=== PATIENT | male | born 1955 | race Caucasian/White ===

== ENCOUNTER 2019-09-23 17:24 | Inpatient (IN) | payer OTHER ==
[~2019-09-23] VITALS: Ht 165.1 cm; Wt 72.6 kg
[2019-09-23] MEDS ORDERED: ZANTAC 150150 MG PO (17:39)
[2019-09-23] MEDS ORDERED: SEROQUEL400 M1 PO (17:39)
[2019-09-23] MEDS ORDERED: ZOCOR20 MG PO (17:39)
[2019-09-23] MEDS ORDERED: NATURE'S BLEND100 M2 PO (17:41)
[2019-09-23] MEDS ORDERED: COGENTIN0.5 MG PO (17:42)
[2019-09-23] MEDS ORDERED: ZYPREXA10 M1 PO (17:42)
[2019-09-23] MEDS ORDERED: PROTONIX20 MG PO (17:43)
[2019-09-23] MEDS ORDERED: ASPIRIN81 M1 PO (17:44)
[2019-09-23] MEDS ORDERED: LISINOPRIL2.5 MG PO (17:44)
[2019-09-23] MEDS ORDERED: DILANTIN100 MG PO (17:44)
[2019-09-24 00:18] VITALS: BP 159/83
--- NOTE | 2019-09-24 00:18 | NUR ---
KIRK HORVATH Lizzie a 64 year old M admitted via stretcher from [facility] as a emergency 72 hr. hold admission. Arrived on unit at 0018. ALLERGIES: HALDOL. Vital signs are: [phone]/83. The client signed the following forms with stated understanding: Authorization For The Release of Medical Information, Clothing List, Consent to Voluntary Admission and Hospitalization, Consent and Release Forms/Receipt of Rights, Acknowledgement of Advance Directive Information, Behavioral Health Consent Form, and Informed Consent of Medications. Admitted under the services of Dr. JIA SON,[facility]. A search was conducted and hazardous articles were removed. Client was oriented to the unit. DYLAN PIEDRA
--- NOTE | 2019-09-24 00:39 | NUR ---
HOSPITALIST CALLED, DR. MAJOR UPDATED ON NEW ADMISSION AND MED REC BEING COMPLETE, READY FOR REVIEW. STATED TO PLACE CONSULT UNDER . NO OTHER ORDERS RECEIVED.
--- NOTE | 2019-09-24 00:45 | NUR ---
ON UNIT TO SEE PATIENT AT THIS TIME.
[2019-09-24 00:59] LABS: BILIRUBIN NEGATIVE (NEGATIVE); BLOOD NEGATIVE (NEGATIVE); CLARITY CLEAR (CLEAR); COLOR YELLOW (YELLOW); GLUCOSE NEGATIVE (NEGATIVE); KETONE NEGATIVE (NEGATIVE); LEUKO ESTERASE NEGATIVE (NEGATIVE); NITRITE NEGATIVE (NEGATIVE); PH 6.5 (5.0-9.0); SPECIFIC GRAVITY 1.015 (1.005-1.030); UROBILINOGEN 0.2 E.U./dl (0.2-1.0)
[2019-09-24 01:23] LABS: WBC 0-2 wbc/hpf (0-5)
[2019-09-24 01:34] VITALS: BP 159/83
--- NOTE | 2019-09-24 04:13 | NUR ---
The patient has no complaints and is resting comfortably. DYLAN PIEDRA
[2019-09-24 06:25] LABS: BASO % 0.4 % (0.0-1.0); EOS # 0.4 10*3/uL (0.0-0.4); EOS % 5.4 % (1.0-4.0); HEMATOCRIT 34.9 % (42.0-52.0); HEMOGLOBIN 11.5 g/dl (14.0-18.0); LYMPH # 2.3 10*3/uL (1.3-4.4); MEAN CELL VOLUME 91.6 fl (80.0-94.0); MEAN CORPUSCULAR HGB 30.2 pg (27.0-31.0); MEAN PLATELET VOLUME 9.9 fl (9.6-12.3); MONO # 0.6 10*3/uL (0.1-1.0); NEUT # 3.8 10*3/uL (2.3-7.9); NEUT % 54.1 % (47.0-73.0); PLATELET COUNT AUTOMATED 239 10*3/uL (130-400); RED BLOOD COUNT 3.81 10*6/uL (4.50-5.90); RED CELL DISTRI WIDTH 13.4 % (0-14.5); WHITE BLOOD COUNT 7.1 10*3/uL (4.8-10.8)
[2019-09-24 06:56] LABS: ALBUMIN 3.1 gm/dl (3.1-4.5); BUN 12 mg/dl (7-24); CHLORIDE 113 mmol/L (98-107); CHOLESTEROL 207 mg/dL (<200); CREATININE 0.83 mg/dL (0.70-1.30); POTASSIUM 3.7 mmol/L (3.5-5.1); SGOT/AST 13 IU/L (3-35); SGPT/ALT 12 U/L (12-78); SODIUM 144 mmol/L (136-145); TRIGLYCERIDES 167 mg/dl (<150); VLDL CHOLESTEROL 33 mg/dL (6-40)
[2019-09-24 07:06] LABS: ALKALINE PHOSPHATASE 66 U/L (45-117); B-hCG (QUALITATIVE) NEGATIVE; HDL CHOLESTEROL 43 mg/dl (40-60); LDL CHOLESTEROL 131 mg/dL (9-159); TOTAL PROTEIN 6.2 gm/dL (6.4-8.2)
[2019-09-24 07:52] LABS: VITAMIN D, 25-HYDROXY 20.9 ng/mL (30-100)
[2019-09-24 08:42] VITALS: BP 135/85
--- NOTE | 2019-09-24 11:46 | NUR ---
AM GROUP PT CHOSE NOT TO ATTEND MORNING GROUP THERAPY. PT STAYED IN BED.
--- NOTE | 2019-09-24 14:27 | NUR ---
SPOKE WITH VIA TELEPHONE, MADE AWARE PT HAS REFUSED BOTH DOSES OF DILANTIN THIS SHIFT, PER PT HE DOES NOT TAKE THIS MEDICATION AT HOME AND DOES NOT HAVE A SEIZURE DISORDER. PT STATES HE WAS TAKING IT AT ONE TIME TO PREVENT SEIZURES RELATED TO DRINKING BUT NO LONGER TAKES AT HOME.
--- NOTE | 2019-09-24 15:40 | NUR ---
PM GROUP PT DID NOT ATTEND AFTERNOON GROUP THERAPY. PT STAYED IN HIS ROOM
--- NOTE | 2019-09-24 18:56 | NUR ---
NO ADVERSE MOODS/BEHAVIORS THIS SHIFT. PT IS ALERT AND ORIENTED X4. MEMORY APPEARS TO BE INTACT. RESPS EASY AND EVEN ON ROOM AIR. MOOD APPEARS STABLE WITH APPROPRIATE AFFECT. PT DENIES FEELING SAD OR DEPRESSED, STATES HE FEELS "OK". PT STATES HE IS HERE BECAUSE SOMEONE STOLE HIS MEDICATIONS. PT DENIES HAVING ANY HALLUCINATIONS SINCE HE'S BEEN HERE BUT STATES YESTERDAY HE WAS SEEING SHADOWS AND HEARING A VOICE IN HIS HEAD TELLING HIM TO RUN HIS HEAD INTO THE WALL AND JUMP IN FRONT OF A CAR. PT DENIES SI/HI, INTENT OR PLAN. CONTRACTS FOR SAFETY. NO PARANOIA OR DELUSIONS NOTED. PT IS MEDICATION COMPLIANT WITH EXCEPTION OF DILANTIN, SEE PREVIOUS NOTE REGARDING THIS MEDICATION. PT HAS OFFERED NO COMPLAINTS THIS SHIFT. NO DISTRESS NOTED. PLAN TO CONTINUE CURRENT TREATMENT, CONTINUE TO MONITOR MOOD AND BEHAVIORS, PROVIDE APPROPRIATE REORIENTATION, REDIRECTION AND 1:1 NEEDED. CONTINUE TO ENCOURAGE MEDICATION COMPLIANCE WELL GROUP ATTENDANCE AND PARTICIPATION.
[2019-09-24 19:59] VITALS: BP 112/68
--- NOTE | 2019-09-24 21:45 | NUR ---
Patient alert and oriented x4. Memory seems to be intact. Mood calm and pleasant. Patient denies any SI/HI at this time. No signs of any responding to internal stimuli. Patient compliant with HS medications without any diffficulty. Patient isolative to self this evening. Provided 1:1 for therapeutic communication and emotional support. Patient ambulating in hallway with steady gait. Plan to continue to encourage medication compliance and continue to provide for emotional support. Also encourage to be more interactive with staff and other patients. Q 15 minute safety checks continued and maintained. See [facility] flowsheet for further documentation.
--- NOTE | 2019-09-25 00:22 | NUR ---
24 HR chart check completed.
--- NOTE | 2019-09-25 05:32 | NUR ---
Patient slept approx. 6 hours throughout shift. Q 15 minute safety checks continued and maintained.
[2019-09-25 06:33] LABS: LIPASE 144 U/L (73-393)
[2019-09-25 07:52] VITALS: BP 110/60
--- NOTE | 2019-09-25 12:09 | NUR ---
AM GROUP/EXERCISE/MUSIC/BINGO PT IN AND OUT OF ACTIVITY ROOM AND OFFERED DIFFERENT ACTIVITY'S. PT LOOKED THROUGH A MAGAZINE FOR A FEW MINUTES AND REQUESTED THE HISTORY CHANNEL, OR TRAVEL CHANNEL, BUT NEITHER CHANNEL AVAILABLE. PT REQUESTED ANOTHER CHANNEL WHICH WE HAD, BUT PT CHOSE NOT TO STAY AND WATCH. PT EXPRESSED NO HALLUCINATIONS OR S.I. AT THIS TIME. PT WILL CONTINUE TO BE ENOCURAGED TO ATTEND AND PARTICIPATE IN FUTURE GROUP SESSIONS.
--- NOTE | 2019-09-25 15:00 | NUR ---
P: VOICED DELUSIONALS THOUGTHS TO NURSE: INFORMED NURSE OF THE FOLLOWING "I GOT MYSELF IN SKILLED NURSING, WANTING TO TALK TO SOMEONE I THOUGHT WOULD KNOW WHERE MY SISTER IS OR HERE WHERE [place], SHE HAS BEEN MISSING FOR 30 YRS. I HELP TO CONVICT 6 MURDERS AND 15 CHILD MOLESTERS" STATES HIS SISTER IS "GAUTAM HORVATH" ALSO WANTS TO KNOW ABOUT HIS MENTAL HYGENE MEETING, WHERE HE IS GOING NEXT. PATIENT STATES "I [facility] TO GO [facility], I NEED HELP WITH RELOCATING" PATIENT REPORTS HAVING THE FOLLOWING DIAGNOSIS "BIPOLAR AND SCHIZOAFFECTIVE DISORDER, WANTS RECORDS PULLED FROM [place]" PATIENT STATED HE IS HOMELESS AND POLICE WAS CALLED ON HIM FOR BEING AT [employer] IN [place], SLEEPING WITH ONE OF THE BEDS AND HAVING ALCOHOL WITH HIM. I: ONE ON ONE FOR EMOTIONAL SUPPORT, TALKED WITH PATIENT REGARDING COPING SKILLS AND GOALS. ENCOUARGED PATIENT TO TALK WITH AREA FIELD MANAGER ON FRIDAY AND DOCTOR REGARDING DISCHARGES PLANS. R: EFFECTIVE. PATIENT IS ALERT AND ORIENT TO PERSON, PLACE, TIME AND SITUATION; ABLE TO VOICE NEEDS. MOOD IS STABLE. DENIES ANY HALLUCINATIONS, DELUSIONS, HI/SI OR PAIN. ADMITS TO HEARING COMMAND HALLUCINATIONS IN THE PAST AND PROCCUPIED THAT VOICE WILL COME BACK WHEN DISCHARGE. MEDICATION COMPLAINT WITH EDUCATION PROVIDED. Q 15 MINUTE SAFETY CHECKS MAINATAINED. INDEPENDENT WITH ACTIVITIES OF DAILY LIVING, CONTINENT OF BOWEL AND BLADDER. SET UP FOR MEALS, INTAKES ARE GOOD WITH ADEQUATE FLUID. CONTINUE TO MONITOR FOR HALLUCINATIONS AND DELUSIONS; PROVIDE ONE ON ONE EMOTIONAL SUPPORT AND ASSIST WITH COPING SKILLS AND GOAL SETTING. P:
--- NOTE | 2019-09-25 15:54 | NUR ---
PM GROUP/BEADING/MUSIC PT CHOSE NOT TO ATTEND OR PARTICIPATE AT THIS TIME. PT TALKING OUTSSIDE OF NURSES STATION TO NURSES AND COMES INTO ACTIVTY ROOM LOOKING FOR COFFEE. PT EXPRESSED NO S.I. OR HALLUCINATIONS WHENI N ACTIVITY ROOM. PT WILL CONTINUE TO BE ENOCURAGED TO ATTEND AND PARTICIPATE IN FUTURE GROUP SESSIONS.
[2019-09-25 19:49] VITALS: BP 111/63
--- NOTE | 2019-09-25 21:49 | NUR ---
Patient alert and oriented x4. Memory seems to be intact. Mood calm and pleasant. Patient denies any SI/HI at this time. No signs of any responding to internal stimuli. Patient watching movie on TV in diningroom with other patients but isolative to self while there. Patient compliant with HS medications without any diffficulty. Provided 1:1 for therapeutic communication and emotional support. Patient ambulating in hallway with steady gait. Plan to continue to encourage medication compliance and continue to provide for emotional support. Also encourage to be more interactive with staff and other patients. Q 15 minute safety checks continued and maintained. See [facility] flowsheet for further documentation.
--- NOTE | 2019-09-26 06:01 | NUR ---
Patient slept approx. 7 hours throughout shift. Q 15 minute safety checks continued and maintained.
[2019-09-26 07:29] VITALS: BP 99/44
--- NOTE | 2019-09-26 07:43 | NUR ---
Patient resting quietly with no c/o discomfort. Respirations easy and regular. Vital signs stable. No overt distress. GIVENS,FRITZ
--- NOTE | 2019-09-26 12:02 | NUR ---
AM GROUP/MUSIC/EXERCISE/GAMES PT OBSERVED PARTS OF GROUP BUT CHOSE NOT TO PARTICIPATE IN ANY SPECIFIC ACTIVITY'S. PT IN AND OUT OF DAY ROOM AT THIS TIME AND EXPRESSED NO HALLUCINATIONS OR S.I.. PT WILL CONTINUE TO BE ENCOURAGED TO ATTEND AND PARTICIPATE IN FUTURE GROUP SESSIONS.
[2019-09-26 19:50] VITALS: BP 132/98
--- NOTE | 2019-09-26 21:16 | NUR ---
Patient alert and oriented x4. Memory seems to be intact. Mood calm and pleasant. Patient denies any SI/HI at this time. No signs of any responding to internal stimuli. Patient more isolative this evening. Came out of his room for medications and snack. Patient ambulating in hallway unassisted with steady gait. Patient compliant with HS medications without any diffficulty. Provided 1:1 for therapeutic communication and emotional support. Patient ambulating in hallway with steady gait. Plan to continue to encourage medication compliance and continue to provide for emotional support. Also encourage to be more interactive with staff and other patients. Q 15 minute safety checks continued and maintained. See [facility] flowsheet for further documentation.
--- NOTE | 2019-09-27 00:10 | NUR ---
24 HR chart check completed.
--- NOTE | 2019-09-27 05:43 | NUR ---
Patient slept approx. 6.5 hours throughout shift. Q 15 minute safety checks continued and maintained.
[2019-09-27 07:50] VITALS: BP 102/63; BP 108/68
--- NOTE | 2019-09-27 08:15 | NUR ---
Treatment Plan meeting was held this a.m. with YARELIS Edmondson, RN, AT, OVERAGE SHORTAGE AND DAMAGE CLERK-S and Conductor/Engineer in attendance. Plan for discharge at the end of the week or early next week. Pt. at this point remains Homeless. Looking for alternate placement for patient.
--- NOTE | 2019-09-27 09:44 | NUR ---
ON UNIT TO SEE PT AT THIS TIME.
--- NOTE | 2019-09-27 11:02 | NUR ---
Faxed admission clinical to [facility]. Awaiting response.
--- NOTE | 2019-09-27 11:25 | NUR ---
P- PT REPORTED TO JACINTO SANTOYO COMMAND HALLUCINATIONS TELLING HIM TO JUMP OFF THE BRIDGE AFTER HE LEAVES HERE, HOWEVER, PT DENIES ANY HALLUCINATIONS WHEN INTERVIEWED BY THIS NURSE A SHORT TIME LATER. PT DENIES SI/HI, INTENT OR PLAN. PT REPORTS MOOD BEING "MANICY". HOWEVER, PT STATES HE IS FEELING MUCH BETTER SINCE HE HAS BEEN ABLE TO SLEEP BETTER AT NIGHT. PT STATES "[facility] I- ORIENTATION, MOOD AND BEHAVIOR ASSESSED. ASSESSED PT FOR S/S HALLUCINATIONS, PARANOIA AND/OR DELUSIONS. MEDICATIONS ADMINISTERED PER PHYSICIAN'S ORDERS. EMOTIONAL SUPPORT PROVIDED. ENCOURAGED PT TO COME TO STAFF WHEN HALLUCINATIONS OCCUR. ENCOURAGED PT TO ATTEND AND PARTICIPATE IN VALERA MILIEU GROUPS AND ACTIVITIES. R- PT IS ALERT AND ORIENTED X4. MEMORY INTACT. RESPS EASY AND EVEN ON ROOM AIR. PT REPORTS FEELING "MANICY", HOWEVER MOOD APPEARS STABLE WITH BLUNTED AFFECT. NO S/S MEJIA OR HYPOMANIA OBSERVED BY STAFF. WHEN INTERVIEWED BY THIS RN PT DENIES SI/HI, INTENT OR PLAN WELL HALLUCINATIONS OF ANY TYPE. PT AGREES TO COME TO RN IF HALLUCINATIONS OCCUR. HOWEVER, PT DID REPORT COMMAND HALLUCINATIONS TO NURSE PRACTITIONER THIS AM. JACINTO MOTOR BUS DRIVER STATES TO CONTINUE ROUTINE Q15 MIN SAFETY CHECKS. PT STATES "THEY'RE WORKING ON GETTING ME TO THE [facility]". NO PARANOIA NOTED. PT IS MEDICATION COMPLIANT WITHOUT DIFFICULTY. EXPRESSES UNDERSTANDING OF MEDICATIONS. PT REPORTS HE IS FEELING BETTER SINCE HE HAS BEEN ABLE TO SLEEP BETTER SINCE BEING IN THE HOSPITAL. PT IS AMBULATORY AD DAMARIS ON THE UNIT WITH STEADY GAIT, INDEPENDENT WITH ADLS, CONTINENT OF BOWEL AND BLADDER. PT OFFERS NO COMPLAINTS OF PAIN OR DISCOMFORT. APPETITE GOOD FOR MEALS WITH ADEQUATE FLUID INTAKE. NO DISTRESS NOTED. PT CONTINUES TO DECLINE TO PARTICIPATE IN GROUPS DESPITE ENCOURAGEMENT. P- PLAN TO CONTINUE CURRENT TREATMENT, CONTINUE TO MONITOR MOOD AND BEHAVIORS, PROVIDE APPROPRIATE REORIENTATION, REDIRECTION AND 1:1 NEEDED. CONTINUE TO ENCOURAGE MEDICATION COMPLIANCE WELL GROUP ATTENDANCE AND PARTICIPATION.
--- NOTE | 2019-09-27 11:41 | NUR ---
AM GROUP/EXERCISE PT WAS IN AND OUT OF THE DAYROOM AND DID NOT PARTICIPATE IN ANY ACTIVITY. PT SAT AT THE BACK OF THE ROOM AND OBSERVED. PT EXPRESSED NO HALLUCINATIONS OR SUICIDAL IDEATIONS WHILE IN GROUP.
--- NOTE | 2019-09-27 13:40 | NUR ---
Occupational therapy orders received and OT screening completed on floor three. Patient demonstrated independent dressing, mobility, and functional transfers. Patient reported good strength in his arms and presented with intact safety awareness and balance. Per nursing staff, patient has been independently completing ADLs and mobility within the unit. Patient was notified of his discharge from OT services and was agreeable without any further questions or concerns. Thank you for the referral. Cassy Lauren, OTR/L
--- NOTE | 2019-09-27 14:41 | NUR ---
Call placed to [facility] to inquire about Homeless resources in the [place] area. Left Message for Hellen [phone].
--- NOTE | 2019-09-27 15:02 | NUR ---
PHYSICAL THERAPY Kamla completed moderate level of complexity 64420. Evlloyd only at this time, full report to follow, as pt Independent with tranfers, Amb in hallways with no AD independently. Spoke with nsg recomend Ortho Consult while here in hospital to f/u make recomendations for pt's R ankle. 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 Pt is able to don/doff air cast on own. At this time would defer any PT intervention of R ankle until seen by Ortho for further assessment and recomendations while in [facility] or f/u as an out-patient Kenisha Jones PT
--- NOTE | 2019-09-27 15:32 | NUR ---
Shift chart check completed.
--- NOTE | 2019-09-27 15:38 | NUR ---
PM GROUP/MOVIE AND MANICURES PT REFUSES ANY ACTIVITY OFFERED AND LEAVES DAYROOM WHEN GROUP STARTS.
--- NOTE | 2019-09-27 15:39 | NUR ---
Met with pt individually. Informed pt that he would not be transferring to the [facility] in [place], [place]. Explained to pt that the goal is to get pt back to [place]. Pt stated that he has been to [place] before and would like to try the crisis unit in [place], [place]. Spoke to Melissa of the [facility] in [place] who stated that pt must call himself to make the referral.
[2019-09-27 19:51] VITALS: BP 105/68
--- NOTE | 2019-09-27 21:37 | NUR ---
P-ISOLATIVE I-REDIRECTION WITH 1:1 THERAPEUTIC INTERVENTIONS. EDUCATE AND ENCOURAGE MEDICATION COMPLIANCE R-PATIENT MEDICATION COMPLIANT. PATIENT ABLE TO MAKE NEEDS KNOWN THROUGHOUT SHIFT. PATIENT AMBULATING ON UNIT WITH STEADY GAIT AND WITHOUT ASSISTIVE DEVICE. PATIENT PROVIDED NOURISHMENT AND FLUIDS. PATIENT WITH FLAT AFFECT. PATIENT SITTING IN DINING AREA WITH LIMITED INTERACTION WITH PEERS. PATIENT DENIES SUICIDAL OR HOMICIDAL IDEATIONS. PATIENT DENIES HALLUCINATIONS OR DELUSIONS AT THIS TIME. P-CONTINUE TO ENCOURAGE MEDICATION COMPLIANCE, ENCOURAGE GROUP THERAPY WHILE AWAKE
--- NOTE | 2019-09-28 05:55 | NUR ---
PATIENT SLEPT 8 HOURS OF INTERRUPTED SLEEP THROUGHOUT SHIFT. Q 15 MINUTE CHECKS MAINTAINED. 24 HR chart check completed.
[2019-09-28 07:46] VITALS: BP 123/65
--- NOTE | 2019-09-28 08:15 | NUR ---
Treatment Plan meeting was held with Debo SANTOYO, RN, AT, KAMI-S and Recreation Clerk in attendance. Plan for discharge . Pt. is to call [facility] and Possible discharge on .
--- NOTE | 2019-09-28 10:32 | NUR ---
AND ON UNIT TO SEE PT AT THIS TIME.
--- NOTE | 2019-09-28 11:42 | NUR ---
AM GROUP/WATERCOLORS PT DID NOT ATTEND MORNING GROUP THERAPY. PT STAYED IN HIS ROOM
--- NOTE | 2019-09-28 13:29 | NUR ---
P- PT REPORTS AUDITORY HALLUCINATIONS COMING FROM THE TV, PT STATES "THE VOICES CALL ME A BIG HEADED BASTARD". PT REPORTS HE FEELS "MANIC". I- ORIENTATION, MOOD AND BEHAVIOR ASSESSED. ASSESSED PT FOR SI/HI, INTENT OR PLAN. ASSESSED PT FOR S/S HALLUCINATIONS, PARANOIA AND/OR DELUSIONS. MEDICATIONS ADMINISTERED PER PHYSICIANS ORDERS. ENCOURAGED PT TO ATTEND AND PARTICIPATE IN [facility] GROUPS AND ACTIVITIES. R- PT IS ALERT AND ORIENTED X4. MEMORY INTACT. RESPS EASY AND EVEN ON ROOM AIR. MOOD APPEARS STABLE WITH FLAT AFFECT. PT REPORTS FEELING "MANIC", NO S/S OF MEJIA OR HYPOMANIA NOTED BY STAFF. SPEECH IS WNL AND COHERENT, ABLE TO MAKE NEEDS KNOWN WITHOUT DIFFICULTY. PT DENIES SI/HI, INTENT OR PLAN. PT REPORTS HEARING VOICES COMING FROM THE TV. PT STATES THESE VOICES "CALL ME A BIG HEADED BASTARD". PT DENIES ANY COMMAND HALLUCINATIONS THIS DATE. PT DENIES SI/HI, INTENT OR PLAN. CONTRACTS FOR SAFETY. NO PARANOIA OR DELUSIONS NOTED. PT REMAINS ISOLATIVE TO ROOM. PACES HALLWAYS OCCASIONALLY. PT MAKING FREQUENT COMMENTS ABOUT THE COMPUTERS ON THE UNIT AND STATES "I WISH I HAD COME UP WITH COMPUTERS. I'D BE A [employer]. THEN I'D OWN A BAR WITH A BEDROOM IN IT". PT IS MED COMPLIANT WITHOUT DIFFICULTY. PT IS AMBULATORY WITH STEADY GAIT, INDEPENDENT WITH ADLS, CONTINENT OF BOWEL AND BLADDER. DISPLAYS GOOD APPETITE WITH ADEQUATE FLUID INTAKE. NO DISTRESS NOTED. P- PLAN TO CONTINUE CURRENT TREATMENT, CONTINUE TO MONITOR MOOD AND BEHAVIORS, PROVIDE APPROPRIATE REORIENTATION, REDIRECTION AND 1:1 NEEDED. CONTINUE TO ENCOURAGE MEDICATION COMPLIANCE WELL GROUP ATTENDANCE AND PARTICIPATION.
--- NOTE | 2019-09-28 17:18 | NUR ---
SHIFT CHART CHECK COMPLETED.
[2019-09-28 20:02] VITALS: BP 109/62
--- NOTE | 2019-09-28 22:31 | NUR ---
P-GUARDED I-PROVIDED 1:1 WITH THERAPEUTIC INTERVENTIONS. ENCOURAGED MEDICATION COMPLIANCE AND EDUCATED. MONITOR SLEEP. R- PT WITH UNDERLYING IRRITABILITY DURING 1:1, ONLY PROVIDING THIS NURSE WITH SIMPLE RESPONSES STATING "YEAH IM FINE", GUARDED. PT OTHERWISE CALM, ISOLATIVE TO SELF. PT DENIES SI/HI, HALLUCINATIONS, OR PAIN. PT ABLE TO VOICE NEEDS, ALERT AND ORIENTED X2. PT AMBULATORY THROUGHOUT UNIT WITH STEADY GAIT. MEDICATION COMPLIANT WITHOUT DIFFICULTY AFTER REVIEW. P-CONTINUE TO MONITOR MOODS AND BEHAVIORS. PROVIDE 1:1 WITH SUPPORT NEEDED. ENCOURAGE MEDICATION COMPLIANCE AND EDUCATE. MAINTAIN Q 15 MIN CHECKS.
--- NOTE | 2019-09-29 03:18 | NUR ---
24 HOUR CHART CHECK COMPLETED.
--- NOTE | 2019-09-29 06:05 | NUR ---
PATIENT OBSERVED ON Q 15 MIN CHECKS TO HAVE SLEPT APPROX 7 HOURS THROUGHOUT THE NIGHT WITH NO AWAKENINGS OR SIGNS AND SYMPTOMS OF DISTRESS NOTED.
[2019-09-29 07:38] VITALS: BP 115/67
--- NOTE | 2019-09-29 08:41 | NUR ---
DR. GONZALEZ ON UNIT TO ASSESS PT, UPDATE PROVIDED.
--- NOTE | 2019-09-29 15:03 | NUR ---
PATIENT IS ALERT AND ORIENTED TO PERSON, PLACE, TIME AND SITUATION; ABLE TO VOICE NEEDS. MOOD IS STABLE. DENIES ANY HALLUCINATIONS, DELUSIONS, HI/SI OR PAIN. MEDICATION COMPLIANT WITH EDUCUATION PROVIDED. Q 15 MINUTE SAFETY CHECKS MAINTAINED. INDPENDENT WITH ACTIVITIES OF DAILY LIVING. CONTINENT OF BOWEL AND BLADDER. SET UP FOR MEALS, INTAKES ARE GOOD WITH ADQUATE FLUIDS. AMBULATORY WITH STEADY GAIT. AMBULATES FREQUENTLY UP AND DOWN HALLWAY. CONTINUE TO MONITOR FOR HALLUCINATIONS, DELUSON AND THOUGHT OF SI. PROVIDE ONE ON ONE AND REDIRECTION NEEDED.
[2019-09-29 19:26] VITALS: BP 131/72
--- NOTE | 2019-09-29 20:18 | NUR ---
P-ISOLATIVE, IRRITABLE I-REDIRECTION WITH 1:1 THERAPEUTIC INTERVENTIONS. EDUCATE AND ENCOURAGE MEDICATION COMPLIANCE R-PATIENT MEDICATION COMPLIANT. PATIENT ABLE TO MAKE NEEDS KNOWN THROUGHOUT SHIFT. PATIENT AMBULATING ON UNIT WITH STEADY GAIT AND WITHOUT ASSISTIVE DEVICE. PATIENT PROVIDED NOURISHMENT AND FLUIDS. PATIENT WITH FLAT AFFECT. PATIENT SITTING IN DINING AREA WITH LIMITED INTERACTION WITH PEERS. PATIENT SITTLING IN DINING AREA BOUNCING LEG UP AND DOWN AND WATCHING TELEVISION.PATIENT DENIES SUICIDAL OR HOMICIDAL IDEATIONS. PATIENT DENIES HALLUCINATIONS OR DELUSIONS AT THIS TIME. PATIENT ARGUMENTATIVE WITH REDIRECTION AND ACCUSATORY OF STAFF WHEN ATTEMPTING REDIRECTION. P-CONTINUE TO ENCOURAGE MEDICATION COMPLIANCE, ENCOURAGE GROUP THERAPY WHILE AWAKE
--- NOTE | 2019-09-30 05:55 | NUR ---
PATIENT SLEPT 8 HOUR UNINTERRUPTED SLEEP THROUGHOUT SHIFT. Q 15 MINUTE CHECKS MAINTAINED. 24 HR chart check completed.
[2019-09-30 07:11] LABS: ALBUMIN 3.1 gm/dl (3.1-4.5); ALKALINE PHOSPHATASE 60 U/L (45-117); BUN 15 mg/dl (7-24); CHLORIDE 113 mmol/L (98-107); CREATININE 1.04 mg/dL (0.70-1.30); POTASSIUM 4.5 mmol/L (3.5-5.1); SGOT/AST 11 IU/L (3-35); SGPT/ALT 13 U/L (12-78); SODIUM 146 mmol/L (136-145); TOTAL PROTEIN 6.1 gm/dL (6.4-8.2); VALPROIC ACID (DEPAKENE) 34.4 ug/ml (50-100)
[2019-09-30 07:27] VITALS: BP 124/69
--- NOTE | 2019-09-30 08:15 | NUR ---
Treatment plan meeting was held with Debo SANTOYO, RN, AT, BUSINESS OBJECTS DEVELOPER-S and Grades 1 Thru 6 Home Teacher in attendance. Plan for discharge today if able to secure Care Home placement. Otherwise plan for discharge tommorow.
--- NOTE | 2019-09-30 11:16 | NUR ---
Had pt phone [facility] to make referral. Heide from [facility] then requested to speak to this sign writer hand. Heide stated that pt has been at their unit 6 times since 06/24 with a total of 30-35 times in 2019. Heide stated that she believes pt is not appropriate to return as they view pt's needs as homelessness and not mental health stabilization. She further stated that when pt is in the unit, pt does not participate in programming. Heide provided information for [facility] [place] [phone]. Phoned there and learned that pt will not be assisted while he is in [place]. Pt must be within the state of [place] before this agency will assist pt in finding resources.
--- NOTE | 2019-09-30 11:36 | NUR ---
p:PT. HAS STATED HE IS EXPERANCING VOICES TELLING HIM TO JUMP OFF A BRIDGE. P: PACING IN THE HALLWAYS, ISOLATIVE TO HIMSELF AND IS NOT COMMUNICATING WITH PEERS, REPORTED TO STAFF HE WAS HAVING COMMAND VOICES TO JUMP OFF OF BRIDGE I: WILL MONITOR PT. MOOD AND BEHAVIOR, ENCOURAGE PT TO TELL STAFF WHEN HE IS HEARING COMMAND VOICES. PT. WILL BE CONTRACT FOR SAFETY, WATCHING FOR EYE DARTING AND TALKING TO SELF OR OTHER SYMPTOMS OF HALLUCINATIONS/DELUSIONS R: PT. STATES HE WILL TELL STAFF WHEN HE IS HEARING VOICES. PROMISES TO NOT HARM SELF WHILE ON UNIT. ALSO REPORTED HE DID NOT HAVE VOICES AT THE TIME OF INTERVIEW. P: CONT. WITH SAFETY PRECAUTIONS, MONITORING FOR SI/HI PT GAIT IS STEADY, PT ALERT X4, AT THIS TIME NO VISUAL S/S OF HALLUCINATIONS NOTED.
--- NOTE | 2019-09-30 11:40 | NUR ---
AM GROUP PT WAS IN AND OUT OF THE DAYROOM AND REFUSES ANY ACTIVITY OFFERED.
--- NOTE | 2019-09-30 11:45 | NUR ---
Call placed to Julieta at the [facility]. Pt. is well known to Julieta. He is not able to have housing with the [facility] due to Alcohol Abuse. Pt. has to adhere to strict rules and has not been clean from Alcohol previously. Pt. currently stays at the [facility] that is right across the street from [facility]. That Penitentiary does not require a photo ID and they do not have the strict requirements that the [facility] does. Julieta States that Pt. can have an Assessment Completed once back in the [facility], he would simply need to walk across the street to speak with someone daily Friday-Friday 2:00-4:00 and they would work with him to establish housing. Spoke with Suze Taylor at the [facility] who advised that patient can return but the doors do not open until 7:30 p.m. Pt. does have his mail forwarded there. Advised Suze that patient would discharge tommorow and transportation has been arranged with [employer] to transport patient to the [facility] with a brain picker time of 6:00 p.m. 10/01/2019 with Reference # [id number]. Pt. will discharge to [address] [place] [address], [place] [id number].
--- NOTE | 2019-09-30 15:41 | NUR ---
PM GROUP/PAINTING PT DID NOT ATTEND AFTERNOON GROUP THERAPY. PT WAS WALKING THE BEST.
[2019-09-30 19:32] VITALS: BP 137/68
--- NOTE | 2019-09-30 23:14 | NUR ---
24 HR chart check completed.
--- NOTE | 2019-09-30 23:49 | NUR ---
PT HAS BEEN STABLE. NO SUICIDAL FEELINGS OR STATEMENTS VOICED. HAS BEEN SITTING IN THE DINING ROOM WATCHING TV. KEEPS TO HIMSELF. AMBULATES INDEPENDENTLY. ALERT & ORIENTED X 3. STATED THAT HE IS FEELING "GOOD". DENIES ANY HALLUCINATIONS. NO SIGNS/SYMPTOMS OF SENSORY DISTURBANCE NOTED. COMPLIANT WITH MEDICATIONS. REQUESTED & MEDICATED WITH PO MAALOX FOR C/O UPSET STOMACH.
--- NOTE | 2019-10-01 04:42 | NUR ---
PT HAS SLEPT PAST 2114
[2019-10-01 07:35] VITALS: BP 108/71
--- NOTE | 2019-10-01 08:15 | NUR ---
Treatment Plan meeting was held with Flores SANTOYO, RN, AT, PRINCIPAL ELECTRICAL ENGINEER-S and Dyeing Machine Back Tender in attendance. Plan for discharge today. Pt. will return to [facility] in [facility] where his mail and Food Stamp Card are forwarded. Transportation has been arranged with [place] [employer], [facility] to transport with fruit or nut picker 6:00 p.m. this evening due to patient not being able to enter the sheter until 7:30 p.m. Follow up appointments have been scheduled and Appointment is scheduled for Orthopedic Doctor at [facility] for Follow up. Per Nursing on U they will discuss discharge with patient prior to Transportation fruit or nut picker with Patient not before.
--- NOTE | 2019-10-01 09:07 | NUR ---
DR. RAMIREZ ON UNIT TO ASSESS PT, UPDATE PROVIDED.
--- NOTE | 2019-10-01 09:07 | NUR ---
DR. RAMIRZE ON UNIT TO ASSESS PT, UPDATE PROVIDED.
[2019-10-01] MEDS ORDERED: VITAMIN D5000 UNI1 PO (09:34)
--- NOTE | 2019-10-01 09:36 | NUR ---
PT ALERT TO PERSON, PLACE, TIME AND SITUATION. PT MED COMPLIANT WITHOUT DIFFICULTY, MED EDUCATION PROVIDED. PT CALM, MOOD IS STABLE. PT ISOLATIVE TO SELF AT TIMES PER BASELINE. NO HALLUCINATIONS OR DELUSIONS NOTED. PT DENIES ANY SUICIDAL THOUGHTS. PT AMBULATORY THROUGHOUT UNIT, GAIT STEADY. PT CONTINENT OF BOWEL AND BLADDER. PLAN IS TO MONITOR PT BEHAVIORS ON Q15 MIN SAFETY CHECKS, ENCOURAGE MED COMPLIANCE, PROVIDE MED EDUCATION AND PREPARE PT FOR DISCHARGE.
[2019-10-01] MEDS ORDERED: OLANZAPINE10 MG PO (11:18)
[2019-10-01] MEDS ORDERED: DIVALPROEX SOD250 MG PO ×2 (11:18→11:23)
[2019-10-01] MEDS ORDERED: MIRTAZAPINE15 M2 PO (11:18)
[2019-10-01] MEDS ORDERED: BENZTROPINE MESY1 MG PO (11:21)
--- NOTE | 2019-10-01 11:32 | NUR ---
Received Call from [employer]. Time has been Moved to 5:00 p.m. waste picker time. [facility] [employer] Consultant and [facility] Sales Representative notified.
--- NOTE | 2019-10-01 11:39 | NUR ---
[facility] PT DID NOT ATTEND MORNING GROUP THERAPY. PT WALKS HALLS AND COMES IN AND OUT OF THE DAYROOM BUT REFUSES ANY ACTIVITY OFFERED.
--- NOTE | 2019-10-01 14:33 | NUR ---
Patient is discharging today to [facility] in [place], [place]. Informed this AM by nursing that pt will not be told of discharge until right before discharge time to prevent possible behaviors. While at [facility], pts ability to sleep improved, which improved pt's mood. Pt would sit in the activity room but would choose to not participate. Pt also declined individual counseling. Follow-up will be at community mental health provider [facility] as a walk-in on 10/04/19 at 08:00.
--- NOTE | 2019-10-01 14:35 | NUR ---
Discharge Paperwork faxed to [facility] up and Dr. Paul Jacobo D.O. Orthopedics.
--- NOTE | 2019-10-01 15:35 | NUR ---
[facility] GROUP PT CHOSES NOT TO ATTEND GROUP THERAPY. PT WILL BE DISCHARGED FROM THE UNIT THIS EVENING
--- NOTE | 2019-10-01 17:11 | NUR ---
[facility] [employer] [facility]. PT ESCORTED OFF THE UNIT VIA WHEELCHAIR AND 2 STAFF MEMBERS. PT BELONGINGS AND DISCHARGE PAPERWORK SENT WITH PT.
== END 2019-10-01 17:16 | disposition home or self-care (01) | DRG 885 ==
LOC: 3N 17:24
PROVIDERS: Nurse Practitioner Women's Health; ADMIT Psychiatry & Neurology Psychiatry
DX: F33.3 Major depressive disorder, recurrent, severe with psychotic symptoms (principal); K86.1 Other chronic pancreatitis; R45.851 Suicidal ideations; G25.9 Extrapyramidal and movement disorder, unspecified; F10.10 Alcohol abuse, uncomplicated; G40.909 Epilepsy, unspecified, not intractable, without status epilepticus; E78.5 Hyperlipidemia, unspecified; K21.9 Gastro-esophageal reflux disease without esophagitis; I10 Essential (primary) hypertension; F17.210 Nicotine dependence, cigarettes, uncomplicated; E55.9 Vitamin D deficiency, unspecified; D50.9 Iron deficiency anemia, unspecified; Z71.6 Tobacco abuse counseling; Z79.899 Other long term (current) drug therapy; Z79.82 Long term (current) use of aspirin; Z88.8 Allergy status to other drugs, medicaments and biological substances; Z82.49 Family history of ischemic heart disease and other diseases of the circulatory system